=== PATIENT | female | born 1995 | race Caucasian/White ===

== ENCOUNTER 2024-01-23 08:54 | Emergency (ER) | payer SELFPAY ==
[~2024-01-23] VITALS: Ht 160 cm; Wt 65.9 kg
[2024-01-23 08:59] VITALS: TEMP 98.6
[2024-01-23] MEDS ORDERED: NS 1,000 ML IV ONE ×2 (09:15)
[2024-01-23 09:36] LABS: STREP A POSITIVE
[2024-01-23 09:42] LABS: BASO # 0.1 K/mm3 (0.0-0.2); BASO % 0.4 % (0.0-2.0); EOS % 0.2 % (0.0-4.0); GRAN # 14.1 K/mm3 (1.4-6.5); GRAN % 83.5 % (42.2-75.2); HEMATOCRIT 39.6 % (37.0-47.0); HEMOGLOBIN 13.7 g/dl (12.5-16.0); LYMPH # 1.6 K/mm3 (1.2-3.4); LYMPH % 9.4 % (20.0-51.0); MEAN CELL VOLUME 87 fl (80.0-100.0); MEAN CORPUSCULAR HEMOGLOBIN 30 pg (27-31); MEAN CORPUSCULAR HGB CONC 35 g/dl (33.0-37.0); MEAN PLATELET VOLUME 10.1 fl (7.4-10.4); MONO # 1.1 K/mm3 (0.1-0.6); MONO % 6.2 % (1.7-9.3); PLATELET COUNT 240 K/mm3 (130-400); RED BLOOD COUNT 4.54 M/mm3 (4.10-5.30); REDCELL DISTRIBUTION WIDTH-CV 11.7 % (11.5-14.5)
[2024-01-23] MEDS ORDERED: cefTRIAXone 1 G in Water For Injection,Sterile 10 ML IV ONE (09:45)
[2024-01-23 09:56] LABS: ALANINE AMINOTRANSFERASE 11 U/L (0-55); ALBUMIN 4.2 gm/dL (3.5-5.0); ALKALINE PHOSPHATASE 57 U/L (40-150); ANION GAP 7 mmol/L (7-16); AST,SGOT 13 U/L (5-34); BILIRUBIN,TOTAL 2.3 mg/dL (0.2-1.2); BLOOD UREA NITROGEN 9 mg/dL (7-19); CALCIUM 9.4 mg/dL (8.4-10.2); CARBON DIOXIDE 20 mmol/L (22-29); CHLORIDE 109 mmol/L (98-107); CREATININE, serum 0.69 mg/dL (0.57-1.11); GLUCOSE 111 mg/dL (70-99); POTASSIUM 3.6 mmol/L (3.5-4.5); SODIUM 136 mmol/L (136-145); TOTAL PROTEIN 7.1 gm/dL (6.2-8.1)
[2024-01-23 10:03] LABS: TROPONIN-I < 0.010 ng/mL (0.00-0.033)
[2024-01-23 10:26] VITALS: BP 110/77; PULSE 98
[2024-01-23] MEDS ORDERED: PEN-VEE K500 MG PO (10:26)
== END 2024-01-23 10:33 | disposition home or self-care (01) ==
LOC: COL.ER 08:54
PROVIDERS: Personal Emergency Response Attendant
DX: J02.0 Streptococcal pharyngitis (principal); R07.9 Chest pain, unspecified; R00.0 Tachycardia, unspecified; Z86.16 Personal history of COVID-19; Z88.1 Allergy status to other antibiotic agents
CPT/HCPCS: J0696; J7030